=== PATIENT | male | born 1945 | race Caucasian/White ===

== ENCOUNTER 2018-10-08 07:42 | Day surgery (SDC) | payer BC, OTHER ==
[2018-10-04 14:32] VITALS: BMI 31.1
[2018-10-08] MEDS ORDERED: PROPOFOL 20 ML ONE ×3 (08:58)
[2018-10-08 09:38] VITALS: TEMP 97.6
[2018-10-08 10:01] VITALS: BP 176/89; PULSE 50
--- NOTE | 2018-10-10 13:12 | PATH ---
Surgical Pathology Report Patient Name: REBEKA DOSHI [facility]. Rec. #: [id number] /Age/Gender: 1945 (Age: 73) / M Account: [id number] Location: [facility] Taken: 10/08/2018 Received: 10/08/2018 Reported: 10/10/2018 Physicians: Fermin Arteaga M.D. Specimen(s) Received A: BX CECAL IRRITATION B: BX RIGHT COLON INFLAMMATION C: HOT SNARE POLYPECTOMY RIGHT COLON D: BX POLYP OF LEFT COLON Clinical History History of polyps Postoperative diagnosis: Diverticulosis, polyp, irritation Final Diagnosis A. CECAL IRRITATION, BIOPSY: MODERATE CHRONIC ACTIVE COLITIS WITH FOCAL CRYPTITIS AND MODERATE CRYPT ARCHITECTURAL DISTORTION. NEGATIVE FOR DYSPLASIA. (SEE NOTE) B. RIGHT COLON, INFLAMMATION, BIOPSY: MODERATE CHRONIC ACTIVE COLITIS WITH CRYPTITIS AND MILD CRYPT ARCHITECTURAL DISTORTION. NEGATIVE FOR DYSPLASIA. (SEE NOTE) C. RIGHT COLON, POLYP, POLYPECTOMY: HYPERPLASTIC POLYP. D. LEFT COLON, POLYP, BIOPSY: TUBULAR ADENOMA. Note: These findings are consistent with chronic inflammatory bowel disease. Correlation with clinical findings is recommended. Electronically Signed Iris Blandon M.D. Gross Description A. Received in formalin, labeled "biopsy cecal irritation" is a julien, irregular portion of soft tissue measuring 0.3 cm. in greatest dimension. The specimen is submitted in toto in one cassette. B. Received in formalin, labeled "biopsy right colon inflammation" is a julien, irregular portion of soft tissue measuring 0.5 cm. in greatest dimension. The specimen is submitted in toto in one cassette. C. Received in formalin, labeled "hot snare polypectomy right colon" are 2 julien, irregular portions of soft tissue measuring 0.2 and 0.3 cm. in greatest dimension. The specimens are submitted in toto in one cassette. D. Received in formalin, labeled "biopsy polyp left colon" is a julien, irregular portion of soft tissue measuring 0.4 cm. in greatest dimension. The specimen is submitted in toto in one cassette. 10/08/2018 saudi10/08/2018
== END 2018-10-08 10:05 | disposition home or self-care (01) ==
LOC: FASU-ENDO 07:42
PROVIDERS: ATTEND Internal Medicine Gastroenterology
PROC: 0DBL8ZX Excision of Transverse Colon, Via Natural or Artificial Opening Endoscopic, Diagnostic (ICD-10-PCS; 2018-10-08)
PROC: 0DBK8ZX Excision of Ascending Colon, Via Natural or Artificial Opening Endoscopic, Diagnostic (ICD-10-PCS; 2018-10-08)
PROC: 0DBM8ZX Excision of Descending Colon, Via Natural or Artificial Opening Endoscopic, Diagnostic (ICD-10-PCS; principal; 2018-10-08 08:58)
DX: Z86.010 Personal history of colon polyps (principal); Z83.71 Family history of colonic polyps; K52.89 Other specified noninfective gastroenteritis and colitis; K63.5 Polyp of colon; K57.30 Diverticulosis of large intestine without perforation or abscess without bleeding
CPT/HCPCS: 88305-TC